=== PATIENT | female | born 1955 | race Caucasian/White ===

== ENCOUNTER 2025-01-05 17:34 | Inpatient (IN) ==
[2025-01-05] MEDS: morphine 4 MG/ML VIAL IV ONE (18:41)
[2025-01-05] MEDS: 0.9 % SODIUM CHLORIDE 1,000 ML IV ONE (18:41)
[2025-01-05 19:10] LABS: ALT/SGPT 44 U/L (<40); AST/SGOT 58 U/L (<32); Albumin 3.7 gm/dL (3.2-5.2); Albumin/Globulin Ratio 1.1 (1.0-2.3); Alkaline Phosphatase 133 U/L (39-117); Bilirubin,Total 0.8 mg/dL (0.1-1.0); Blood Urea Nitrogen 20 mg/dL (8-23); Calcium 9.2 mg/dL (8.6-10.4); Carbon Dioxide 25 mmol/L (22-30); Chloride 102 mmol/L (96-108); Globulin 3.4 gm/dL (2.2-3.7); Glomerular Filtration Rate 76; Glucose 98 mg/dL (70-105); Potassium 3.9 mmol/L (3.3-5.1); Sodium 139 mmol/L (133-145)
[2025-01-05 19:45] LABS: Basophils # (Auto) 0.01 K/mcL (0.00-0.30); Basophils % (Auto) 0.2 % (0.0-2.0); Eosinophils # (Auto) 0.03 K/mcL (0.00-0.70); Eosinophils % (Auto) 0.6 % (0.0-7.0); Hematocrit 35.9 % (34.1-44.9); Hemoglobin 11.1 g/dL (11.2-15.7); Lymphocytes # (Auto) 0.54 K/mcL (1.50-4.80); Lymphocytes % (Auto) 10.6 % (15.5-49.0); Mean Cell Volume 84.9 fL (80.0-100.0); Mean Corpuscular HGB Conc 30.9 g/dL (31.0-36.0); Monocytes # (Auto) 0.71 K/mcL (0.10-0.90); Monocytes % (Auto) 13.9 % (1.0-12.0); Neutrophils % (Auto) 74.5 % (38.0-78.0); Platelet Count 90 K/mcL (140-440); RBC 4.23 M/mcL (3.59-5.38); Red Cell Distribution Width 15.4 % (11.5-14.5); WBC 5.1 K/mcL (4.5-11.0)
[2025-01-05] MEDS: valACYclovir 500 MG TABLET PO ONE (19:56)
[2025-01-05 20:27] LABS: Alcohol, Blood < 10 mg/dL; Alcohol,Blood < 0.01 gm/dL ({0.01, null})
[2025-01-05 21:25] LABS: Appearance,Urine Slightly Cloudy (Clear); Bacteria,Urine Mod /hpf ({null, 0}); Bilirubin,Urine Small mg/dL (Negative); Color,Urine Yellow; Glucose,Urine (UA) Negative (Negative); Ketones,Urine 40 mg/dL (Negative); Leukocyte Esterase,Urine Small /uL (Negative); Nitrate,Urine Positive (Negative); PH,Urine 5.5 (5.0-9.0); Protein,Urine 30 mg/dL (Negative); Specific Gravity,Urine >= 1.030 (1.000-1.035); Urine Blood Trace-intact ery/mcL (Negative); Urine RBC 3 /hpf (0-3); Urine Squamous Epithelial Cell 2 /hpf (0-4); Urine WBC 10 /hpf (0-4); Urobilinogen,Urine Normal
[2025-01-05] MEDS: cefTRIAXone 1 GM VIAL IV ONE (21:40)
[2025-01-05] MEDS: LACTATED RINGERS 1,000 ML IV ONE (21:42)
[2025-01-05] MEDS ORDERED: IPRATROPIUM/ALBUTEROL 3 ML AMPUL.NEB NEB PRN (22:37)
[2025-01-05] MEDS ORDERED: SENNOSIDES 1 TABLET PO PRN (22:37)
[2025-01-05] MEDS ORDERED: MAGNESIUM SULFATE 2 GM/50 ML BAG IV PRN (22:37)
[2025-01-05] MEDS ORDERED: POLYETHYLENE GLYCOL 3350 17 GM PACKET PO PRN (22:37)
[2025-01-05] MEDS ORDERED: POTASSIUM CHLORIDE 20 MEQ TABLET PO PRN ×2 (22:37)
[2025-01-05] MEDS ORDERED: LABETALOL HCL 20 MG/4 ML VIAL IV PRN (22:37)
[2025-01-05] MEDS ORDERED: POTASSIUM CHLORIDE 40 MEQ in DEXTROSE 5% IN WATER 500 ML IV PRN (22:37)
[2025-01-05] MEDS ORDERED: ONDANSETRON 4 MG/2 ML VIAL IV PRN (22:37)
[2025-01-05] MEDS ORDERED: METOCLOPRAMIDE 10 MG/2 ML VIAL IV PRN (22:37)
[2025-01-05] MEDS: ENOXAPARIN 40 MG/0.4 ML SYRINGE SQ SCH (22:58)
[2025-01-05] MEDS: 0.9 % SODIUM CHLORIDE 1,000 ML IV SCH (23:05)
[2025-01-05] MEDS: ENOXAPARIN 40 MG/0.4 ML SYRINGE ONE (23:07)
[2025-01-05] MEDS: cefTRIAXone 1 GM VIAL IV SCH (23:13)
[2025-01-06] MEDS: METOPROLOL TARTRATE 5 MG/5 ML VIAL IV PRN (05:41)
[2025-01-06 06:07] LABS: ALT/SGPT 38 U/L (<40); AST/SGOT 54 U/L (<32); Albumin 3.3 gm/dL (3.2-5.2); Albumin/Globulin Ratio 1.2 (1.0-2.3); Alkaline Phosphatase 115 U/L (39-117); Bilirubin,Direct 0.4 mg/dL (<0.3); Bilirubin,Total 0.7 mg/dL (0.1-1.0); Blood Urea Nitrogen 18 mg/dL (8-23); Calcium 8.3 mg/dL (8.6-10.4); Carbon Dioxide 25 mmol/L (22-30); Chloride 103 mmol/L (96-108); Globulin 2.8 gm/dL (2.2-3.7); Glomerular Filtration Rate 76; Glucose 109 mg/dL (70-105); Lactate Dehydrogenase 207 U/L (135-225); Phosphorous 2.9 mg/dL (2.5-4.5); Potassium 3.9 mmol/L (3.3-5.1); Sodium 136 mmol/L (133-145); Triglycerides 99 mg/dL (<150); Uric Acid 5.5 mg/dL (2.5-8.0)
[2025-01-06] MEDS: METOPROLOL TARTRATE 5 MG/5 ML VIAL IV ONE ×2 (06:10→09:50)
[2025-01-06 06:18] LABS: Basophils # (Auto) 0.01 K/mcL (0.00-0.30); Basophils % (Auto) 0.2 % (0.0-2.0); Eosinophils # (Auto) 0.05 K/mcL (0.00-0.70); Eosinophils % (Auto) 1.2 % (0.0-7.0); Hematocrit 32.9 % (34.1-44.9); Hemoglobin 9.9 g/dL (11.2-15.7); Lymphocytes # (Auto) 0.51 K/mcL (1.50-4.80); Lymphocytes % (Auto) 11.8 % (15.5-49.0); Mean Cell Volume 85.9 fL (80.0-100.0); Mean Corpuscular HGB Conc 30.1 g/dL (31.0-36.0); Mean Platelet Volume 8.8 fL (8.8-12.5); Monocytes # (Auto) 0.46 K/mcL (0.10-0.90); Monocytes % (Auto) 10.7 % (1.0-12.0); Neutrophils % (Auto) 75.9 % (38.0-78.0); Platelet Count 65 K/mcL (140-440); RBC 3.83 M/mcL (3.59-5.38); Red Cell Distribution Width 15.7 % (11.5-14.5); WBC 4.3 K/mcL (4.5-11.0)
[2025-01-06] MEDS: valACYclovir 500 MG TABLET PO SCH (08:43)
[2025-01-06] MEDS: buPROPion 150 MG TAB.XL.24H PO SCH (08:44)
[2025-01-06] MEDS: DOCUSATE SODIUM 100 MG CAPSULE PO SCH (08:44)
[2025-01-06] MEDS: URSODIOL 300 MG CAPSULE PO SCH (08:49)
[2025-01-06] MEDS: [UNRECOGNIZED DRUG - OTHER] PO SCH (08:49)
[2025-01-06] MEDS: Fluticasone-Umeclidin-Vilanter [Trelegy Ellipta] Inhaler INH SCH (08:49)
[2025-01-06 09:10] LABS: INR 1.1 (0.9-1.1); Prothrombin Time 14.6 sec (11.9-14.5)
[2025-01-06] MEDS: ADENOSINE 3 MG/ML VIAL IV ONE ×2 (12:00→12:46)
[2025-01-06] MEDS: METOPROLOL TARTRATE 25 MG TABLET PO SCH ×2 (12:16→20:32)
[2025-01-06] MEDS: METOPROLOL TARTRATE 25 MG TABLET PO ONE (14:18)
[2025-01-06] MEDS: 0.9 % SODIUM CHLORIDE 10 ML SYRINGE IV SCH (19:15)
[2025-01-07 06:23] LABS: Basophils # (Auto) 0.02 K/mcL (0.00-0.30); Basophils % (Auto) 0.3 % (0.0-2.0); Eosinophils % (Auto) 1.7 % (0.0-7.0); Hemoglobin 9.4 g/dL (11.2-15.7); Lymphocytes # (Auto) 0.91 K/mcL (1.50-4.80); Lymphocytes % (Auto) 15.2 % (15.5-49.0); Mean Cell Volume 85.9 fL (80.0-100.0); Mean Corpuscular HGB Conc 30.3 g/dL (31.0-36.0); Mean Platelet Volume 9.3 fL (8.8-12.5); Monocytes # (Auto) 0.67 K/mcL (0.10-0.90); Monocytes % (Auto) 11.2 % (1.0-12.0); Neutrophils % (Auto) 71.3 % (38.0-78.0); Platelet Count 73 K/mcL (140-440); RBC 3.61 M/mcL (3.59-5.38); Red Cell Distribution Width 15.7 % (11.5-14.5)
[2025-01-07 06:29] LABS: ALT/SGPT 34 U/L (<40); AST/SGOT 46 U/L (<32); Albumin 3.1 gm/dL (3.2-5.2); Albumin/Globulin Ratio 1.1 (1.0-2.3); Alkaline Phosphatase 115 U/L (39-117); Bilirubin,Direct 0.3 mg/dL (<0.3); Bilirubin,Total 0.5 mg/dL (0.1-1.0); Blood Urea Nitrogen 25 mg/dL (8-23); Calcium 8.4 mg/dL (8.6-10.4); Carbon Dioxide 25 mmol/L (22-30); Chloride 101 mmol/L (96-108); Globulin 2.8 gm/dL (2.2-3.7); Glomerular Filtration Rate 46; Glucose 100 mg/dL (70-105); Lactate Dehydrogenase 215 U/L (135-225); Phosphorous 3.4 mg/dL (2.5-4.5); Potassium 4.2 mmol/L (3.3-5.1); Sodium 132 mmol/L (133-145); Triglycerides 98 mg/dL (<150)
[2025-01-07] MEDS: OMEPRAZOLE 20 MG CAPSULE PO SCH (07:30)
[2025-01-08] MEDS: ACETAMINOPHEN 325 MG TABLET PO PRN (04:44)
[2025-01-08 06:16] LABS: ALT/SGPT 31 U/L (<40); AST/SGOT 37 U/L (<32); Albumin 3.1 gm/dL (3.2-5.2); Alkaline Phosphatase 118 U/L (39-117); Bilirubin,Direct 0.3 mg/dL (<0.3); Bilirubin,Total 0.5 mg/dL (0.1-1.0); Blood Urea Nitrogen 28 mg/dL (8-23); Calcium 8.6 mg/dL (8.6-10.4); Carbon Dioxide 23 mmol/L (22-30); Chloride 99 mmol/L (96-108); Glomerular Filtration Rate 46; Glucose 112 mg/dL (70-105); Lactate Dehydrogenase 216 U/L (135-225); Phosphorous 3.8 mg/dL (2.5-4.5); Potassium 4.1 mmol/L (3.3-5.1); Sodium 132 mmol/L (133-145); Triglycerides 86 mg/dL (<150); Uric Acid 6.6 mg/dL (2.5-8.0)
[2025-01-08 06:32] LABS: Basophils # (Auto) 0.02 K/mcL (0.00-0.30); Basophils % (Auto) 0.4 % (0.0-2.0); Eosinophils # (Auto) 0.13 K/mcL (0.00-0.70); Eosinophils % (Auto) 2.5 % (0.0-7.0); Hemoglobin 9.6 g/dL (11.2-15.7); Lymphocytes % (Auto) 13.6 % (15.5-49.0); Mean Cell Volume 84.2 fL (80.0-100.0); Mean Platelet Volume 9.6 fL (8.8-12.5); Monocytes # (Auto) 0.43 K/mcL (0.10-0.90); Monocytes % (Auto) 8.3 % (1.0-12.0); Neutrophils % (Auto) 74.6 % (38.0-78.0); Platelet Count 78 K/mcL (140-440); RBC 3.68 M/mcL (3.59-5.38); Red Cell Distribution Width 15.4 % (11.5-14.5); WBC 5.2 K/mcL (4.5-11.0)
[2025-01-08] MEDS: 0.9 % SODIUM CHLORIDE 500 ML IV ONE (07:22)
[2025-01-09 09:02] LABS: Blood Urea Nitrogen 27 mg/dL (8-23); Calcium 8.8 mg/dL (8.6-10.4); Carbon Dioxide 24 mmol/L (22-30); Chloride 103 mmol/L (96-108); Glomerular Filtration Rate 42; Glucose 101 mg/dL (70-105); Potassium 4.5 mmol/L (3.3-5.1); Sodium 136 mmol/L (133-145)
[2025-01-09] MEDS: FUROSEMIDE 40 MG/4 ML VIAL IV SCH (09:41)
[2025-01-09 19:12] VITALS: O2SAT 99
[2025-01-10 07:34] VITALS: TEMP 97.3
[2025-01-10] MEDS: FUROSEMIDE 20 MG TABLET PO SCH (08:24)
== END 2025-01-10 13:19 | DRG 690 ==
LOC: ED 17:34 → MEDSUR 22:34 → ICU 01-06 10:41
PROVIDERS: ADMIT Internal Medicine; ATTEND Internal Medicine

== ENCOUNTER 2025-08-27 11:53 | Inpatient (IN) ==
[2025-08-27 12:33] LABS: Basophils # (Auto) 0.01 K/mcL (0.00-0.30); Basophils % (Auto) 0.3 % (0.0-2.0); Eosinophils # (Auto) 0.05 K/mcL (0.00-0.70); Eosinophils % (Auto) 1.6 % (0.0-7.0); Hematocrit 30.4 % (34.1-44.9); Hemoglobin 8.6 g/dL (11.2-15.7); Lymphocytes # (Auto) 0.49 K/mcL (1.50-4.80); Lymphocytes % (Auto) 15.4 % (15.5-49.0); Mean Corpuscular HGB Conc 28.3 g/dL (31.0-36.0); Monocytes # (Auto) 0.34 K/mcL (0.10-0.90); Monocytes % (Auto) 10.7 % (1.0-12.0); Neutrophils % (Auto) 71.7 % (38.0-78.0); Platelet Count 138 K/mcL (140-440); RBC 3.46 M/mcL (3.59-5.38); WBC 3.2 K/mcL (4.5-11.0)
[2025-08-27 13:03] LABS: ALT/SGPT 9 U/L (<40); AST/SGOT 22 U/L (<32); Albumin 3.4 gm/dL (3.2-5.2); Albumin/Globulin Ratio 1.0 (1.0-2.3); Alkaline Phosphatase 118 U/L (39-117); Anion Gap 9.0 (8.0-16.0); Bilirubin,Total 0.3 mg/dL (0.1-1.0); Blood Urea Nitrogen 16 mg/dL (8-23); Calcium 8.7 mg/dL (8.6-10.4); Carbon Dioxide 29 mmol/L (22-30); Chloride 103 mmol/L (96-108); Globulin 3.3 gm/dL (2.2-3.7); Glucose 99 mg/dL (70-105); Potassium 4.5 mmol/L (3.3-5.1); Sodium 141 mmol/L (133-145); Thyroid Stimulating Hormone 2.18 uIU/mL (0.27-5.01)
[2025-08-27 13:25] LABS: Bacteria,Urine Mod /hpf (0); Bilirubin,Urine NEGATIVE (Negative); Color,Urine YELLOW; Glucose,Urine (UA) NEGATIVE (Negative); Ketones,Urine NEGATIVE (Negative); Leukocyte Esterase,Urine MODERATE /uL (Negative); PH,Urine 6.0 (5.0-9.0); Protein,Urine 30 mg/dL (Negative); Specific Gravity,Urine 1.015 (1.000-1.035); Urobilinogen,Urine 0.2 mg/dL
[2025-08-27] MEDS: 0.9 % SODIUM CHLORIDE 500 ML IV ONE (13:56)
[2025-08-27] MEDS ORDERED: POLYETHYLENE GLYCOL 3350 17 GM PACKET PO PRN (14:31)
[2025-08-27 14:55] LABS: C-Reactive Protein 6.57 mg/dL (0.03-0.80)
[2025-08-27] MEDS ORDERED: ONDANSETRON 4 MG/2 ML VIAL IV PRN (16:39)
[2025-08-27] MEDS ORDERED: SENNOSIDES 1 TABLET PO PRN (16:39)
[2025-08-27] MEDS ORDERED: DEXTROSE 50% 50 ML VIAL IV PRN (16:39)
[2025-08-27] MEDS ORDERED: DEXTROSE 31 GM ORAL.SUSP PO PRN (16:39)
[2025-08-27] MEDS: INSULIN LISPRO 1 UNIT/0.01 ML UNIT SQ SCH (16:59)
[2025-08-27] MEDS: IPRATROPIUM/ALBUTEROL 3 ML AMPUL.NEB NEB PRN (19:13)
[2025-08-27] MEDS: FLUTICASONE/SALMETEROL 250/50 INHALER #14 INH SCH (21:42)
[2025-08-27] MEDS: HEPARIN 5,000 UNIT/ML VIAL SQ SCH (21:43)
[2025-08-27] MEDS: GABAPENTIN 300 MG CAPSULE PO SCH (21:43)
[2025-08-27] MEDS: 0.9 % SODIUM CHLORIDE 10 ML SYRINGE IV SCH (21:44)
[2025-08-28 06:58] LABS: C-Reactive Protein 5.58 mg/dL (0.03-0.80)
[2025-08-28 07:39] LABS: Anion Gap 5.0 (8.0-16.0); Blood Urea Nitrogen 12 mg/dL (8-23); Calcium 8.3 mg/dL (8.6-10.4); Carbon Dioxide 31 mmol/L (22-30); Chloride 105 mmol/L (96-108); Glucose 104 mg/dL (70-105); Potassium 4.2 mmol/L (3.3-5.1); Sodium 141 mmol/L (133-145)
[2025-08-28] MEDS ORDERED: cefTRIAXone 1 GM VIAL IV SCH (09:00)
[2025-08-28] MEDS: buPROPion 100 MG TAB.SR.12H PO SCH (09:53)
[2025-08-28] MEDS: cefTRIAXone 2 GM in DEXTROSE 5% IN WATER 50 ML IV SCH (09:54)
[2025-08-28] MEDS: METOPROLOL TARTRATE 25 MG TABLET PO SCH (09:54)
[2025-08-28] MEDS: URSODIOL 300 MG CAPSULE PO SCH (09:59)
[2025-08-28 12:31] LABS: Basophils # (Auto) 0.01 K/mcL (0.00-0.30); Basophils % (Auto) 0.4 % (0.0-2.0); Eosinophils # (Auto) 0.06 K/mcL (0.00-0.70); Eosinophils % (Auto) 2.7 % (0.0-7.0); Hematocrit 28.4 % (34.1-44.9); Hemoglobin 7.9 g/dL (11.2-15.7); Lymphocytes # (Auto) 0.54 K/mcL (1.50-4.80); Lymphocytes % (Auto) 24.2 % (15.5-49.0); Mean Corpuscular HGB Conc 27.8 g/dL (31.0-36.0); Monocytes # (Auto) 0.23 K/mcL (0.10-0.90); Monocytes % (Auto) 10.3 % (1.0-12.0); Neutrophils % (Auto) 62.4 % (38.0-78.0); Platelet Count 114 K/mcL (140-440); RBC 3.14 M/mcL (3.59-5.38); WBC 2.2 K/mcL (4.5-11.0)
[2025-08-29 05:37] LABS: Basophils # (Auto) 0.01 K/mcL (0.00-0.30); Basophils % (Auto) 0.4 % (0.0-2.0); Eosinophils # (Auto) 0.07 K/mcL (0.00-0.70); Eosinophils % (Auto) 3.0 % (0.0-7.0); Hematocrit 28.8 % (34.1-44.9); Hemoglobin 8.0 g/dL (11.2-15.7); Lymphocytes # (Auto) 0.49 K/mcL (1.50-4.80); Lymphocytes % (Auto) 20.8 % (15.5-49.0); Mean Corpuscular HGB Conc 27.8 g/dL (31.0-36.0); Monocytes # (Auto) 0.24 K/mcL (0.10-0.90); Monocytes % (Auto) 10.2 % (1.0-12.0); Neutrophils % (Auto) 65.6 % (38.0-78.0); Platelet Count 108 K/mcL (140-440); RBC 3.20 M/mcL (3.59-5.38); WBC 2.4 K/mcL (4.5-11.0)
[2025-08-29 05:56] LABS: Anion Gap 7.0 (8.0-16.0); Blood Urea Nitrogen 13 mg/dL (8-23); C-Reactive Protein 4.87 mg/dL (0.03-0.80); Calcium 8.3 mg/dL (8.6-10.4); Carbon Dioxide 29 mmol/L (22-30); Chloride 104 mmol/L (96-108); Glucose 89 mg/dL (70-105); Potassium 4.6 mmol/L (3.3-5.1); Sodium 140 mmol/L (133-145)
[2025-08-29] MEDS: IPRATROPIUM/ALBUTEROL 3 ML AMPUL.NEB NEB SCH (12:18)
[2025-08-29] MEDS: CEFDINIR 300 MG CAPSULE PO SCH (22:20)
[2025-08-30 06:46] LABS: Anion Gap 5.0 (8.0-16.0); Blood Urea Nitrogen 12 mg/dL (8-23); Calcium 8.3 mg/dL (8.6-10.4); Carbon Dioxide 31 mmol/L (22-30); Chloride 103 mmol/L (96-108); Glucose 88 mg/dL (70-105); Potassium 4.7 mmol/L (3.3-5.1); Sodium 139 mmol/L (133-145)
[2025-08-30 06:53] LABS: Basophils # (Auto) 0.01 K/mcL (0.00-0.30); Basophils % (Auto) 0.5 % (0.0-2.0); Eosinophils # (Auto) 0.09 K/mcL (0.00-0.70); Eosinophils % (Auto) 4.2 % (0.0-7.0); Hematocrit 29.2 % (34.1-44.9); Hemoglobin 8.0 g/dL (11.2-15.7); Lymphocytes # (Auto) 0.41 K/mcL (1.50-4.80); Lymphocytes % (Auto) 19.2 % (15.5-49.0); Mean Corpuscular HGB Conc 27.4 g/dL (31.0-36.0); Monocytes # (Auto) 0.21 K/mcL (0.10-0.90); Monocytes % (Auto) 9.8 % (1.0-12.0); Neutrophils % (Auto) 65.8 % (38.0-78.0); Platelet Count 108 K/mcL (140-440); RBC 3.20 M/mcL (3.59-5.38); WBC 2.1 K/mcL (4.5-11.0)
[2025-08-30] MEDS: MELATONIN 3 MG TABLET PO PRN (21:04)
[2025-08-31 08:52] LABS: Anion Gap 5.0 (8.0-16.0); Blood Urea Nitrogen 12 mg/dL (8-23); Calcium 8.4 mg/dL (8.6-10.4); Carbon Dioxide 32 mmol/L (22-30); Chloride 102 mmol/L (96-108); Glucose 97 mg/dL (70-105); Potassium 4.5 mmol/L (3.3-5.1); Sodium 139 mmol/L (133-145)
[2025-08-31 11:18] LABS: Basophils # (Auto) 0.01 K/mcL (0.00-0.30); Basophils % (Auto) 0.5 % (0.0-2.0); Eosinophils # (Auto) 0.11 K/mcL (0.00-0.70); Eosinophils % (Auto) 5.9 % (0.0-7.0); Hematocrit 27.4 % (34.1-44.9); Hemoglobin 7.8 g/dL (11.2-15.7); Lymphocytes # (Auto) 0.42 K/mcL (1.50-4.80); Lymphocytes % (Auto) 22.5 % (15.5-49.0); Mean Corpuscular HGB Conc 28.5 g/dL (31.0-36.0); Monocytes # (Auto) 0.20 K/mcL (0.10-0.90); Monocytes % (Auto) 10.7 % (1.0-12.0); Neutrophils % (Auto) 59.9 % (38.0-78.0); RBC 3.08 M/mcL (3.59-5.38); WBC 1.9 K/mcL (4.5-11.0)
[2025-08-31] MEDS: MUPIROCIN OINT 2% 22GM NARES SCH (21:15)
[2025-09-01 06:57] LABS: ALT/SGPT 13 U/L (<40); AST/SGOT 31 U/L (<32); Albumin 3.1 gm/dL (3.2-5.2); Albumin/Globulin Ratio 1.0 (1.0-2.3); Alkaline Phosphatase 117 U/L (39-117); Anion Gap 4.0 (8.0-16.0); Bilirubin,Direct < 0.2 mg/dL (0-0.3); Bilirubin,Total 0.2 mg/dL (0.1-1.0); Blood Urea Nitrogen 13 mg/dL (8-23); Calcium 8.6 mg/dL (8.6-10.4); Carbon Dioxide 33 mmol/L (22-30); Chloride 102 mmol/L (96-108); Globulin 3.0 gm/dL (2.2-3.7); Glucose 93 mg/dL (70-105); Phosphorous 3.7 mg/dL (2.5-4.5); Potassium 4.7 mmol/L (3.3-5.1); Sodium 139 mmol/L (133-145); Triglycerides 98 mg/dL (<150); Uric Acid 7.3 mg/dL (2.5-8.0)
[2025-09-01 07:40] LABS: Hematocrit 30.0 % (34.1-44.9); Hemoglobin 8.2 g/dL (11.2-15.7); Mean Corpuscular HGB Conc 27.3 g/dL (31.0-36.0); Platelet Count 100 K/mcL (140-440); RBC 3.26 M/mcL (3.59-5.38); WBC 2.1 K/mcL (4.5-11.0)
[2025-09-01 08:19] LABS: Anisocytosis 1+ (None Seen); Hypochromasia 1+ (None Seen); RBC Morphology ABNORMAL (Normal)
[2025-09-01] MEDS: BUTALB/ACETAMINOPHEN/CAFFEINE 1 TABLET PO SCH (08:51)
[2025-09-02 03:09] VITALS: O2SAT 97
[2025-09-02 13:20] VITALS: TEMP 98.8
== END 2025-09-02 13:15 | disposition home or self-care (01) | DRG 690 ==
LOC: ED 11:53 → MEDSUR 16:34 → INTOOBSV 16:34
PROVIDERS: ADMIT Student in an Organized Health Care Education/Training Program; ATTEND Internal Medicine